=== PATIENT | male | born 1985 | race Caucasian/White ===

== ENCOUNTER 2021-08-31 11:51 | Emergency (ER) | payer SELFPAY ==
[~2021-08-31] VITALS: Ht 170.2 cm; Wt 75.3 kg
[2021-08-31 11:56] VITALS: BP 117/67
--- NOTE | 2021-08-31 12:05 | NUR ---
GIULIA Alcazar is evaluating patient at bedside
--- NOTE | 2021-08-31 12:10 | NUR ---
35 y/o male, c/o left lower pelvic pain for 5 years. pt states he has a hernia that was never tx. patient reports chronic pain that he rates 10/10, pulling/intermittent, radiating to left lower pelvic. denies medications prior to arrival. denies n/v/d, fever, chills, constipation. bed locked in lowest position, side rails x 1. pmh: denies nka med: denies
[2021-08-31] MEDS ORDERED: NAPR-54 PO (12:12)
[2021-08-31] MEDS ORDERED: KETOROLAC 30 MG/ML VIAL IM ONE (12:15)
--- NOTE | 2021-08-31 12:35 | NUR ---
Patient discharged with v/s stable. Written and verbal after care instructions given and explained for Hernia. Patient alert, oriented and verbalized understanding of instructions. Ambulatory with steady gait. All questions addressed prior to discharge. ID band removed. Patient advised to follow up with PMD. Rx of Naproxen given. Patient educated on indication of medication including possible reaction and side effects. Opportunity to ask questions provided and answered.
== END 2021-08-31 12:35 | disposition home or self-care (01) ==
LOC: MED 11:51
DX: K46.9 Unspecified abdominal hernia without obstruction or gangrene (principal); Z79.1 Long term (current) use of non-steroidal anti-inflammatories (NSAID)
CPT/HCPCS: 96372; 99283; J1885